=== PATIENT | female | born 1965 ===

== ENCOUNTER 2025-05-15 12:17 | Emergency (ER) | payer MEDICARE, MEDICAID, SELFPAY ==
[2025-05-15] VITALS (7 sets, daily range): BP systolic 101–141; BP diastolic 55–84; PULSE 50–61; RESP 12–18; TEMP 36.4–36.9; O2SAT 97–100; BMI 28.3
--- NOTE | 2025-05-15 | ECG_ITS ---
Test Reason : QUESTION PROLONGED QT Blood Pressure : */* mmHG Vent. Rate : 46 BPM Atrial Rate : 46 BPM P-R Int : 190 ms QRS Dur : 80 ms QT Int : 516 ms P-R-T Axes : 60 -1 25 degrees QTcB Int : 451 ms Sinus bradycardia Otherwise normal ECG No previous ECGs available Referred By: Generic ED Physician Electronically Signed By: ELZA ADAMS
[2025-05-15 13:07] LABS: Appearance Urine Clear; Glucose Urine UA >=1000 mg/dL (Negative); PH 5.5 (5.0-9.0); Specific Gravity - Urine 1.025 (1.005-1.025); UMIC TRIGGER UACC YES
[2025-05-15 13:18] LABS: Cannabinoid Screen Urine Not Detected (Not Detect)
[2025-05-15 13:24] LABS: UACC Culture Trigger YES
--- NOTE | 2025-05-15 13:26 | ED.GENADULT ---
HPI - General Adult General Chief complaint: Overdose Stated complaint: HEROIN USEE,ASLEEP/NEEDLE IN HAND,NO NARCAN GIVEN Time Seen by Provider: 05/15/25 13:05 Source: patient and EMS Mode of arrival: EMS Limitations: no limitations History of Present Illness ED Provider: Altagracia Sanchez NP HPI narrative: Patient is a 59-year-old female who presents emergency department via EMS for evaluation. She was found sleeping in [place] garage today. Was brought in by EMS did not received Narcan prior to hospital arrival. Admitting to IV heroin usage today. States that she typically smokes heroin and crack cocaine but elected to intravenously use today. She arrives to emergency department drowsy but arousable to verbal stimuli. Admits that she thought she was currently in a [facility] she was supposed to get out to the [facility] today for detox. When asked she is currently offers no physical complaints. Related Data Previous Rx's ?Medication ?Instructions ?Recorded cefuroxime axetil 250 mg tablet 250 mg PO BID 7 days #14 tabs 05/16/25 Allergies Allergy/AdvReac Type Severity Reaction Status Date / Time gabapentin (GABAPENTIN) Allergy Unknown N/V Unverified 05/15/25 12:33 tetracycline (TETRACYCLINE) Allergy Unknown RASH Unverified 05/15/25 12:33 Review of Systems Review of Systems: Yes all other systems are reviewed and are negative [facility] Past Medical History Attestation statement: The following information was validated with the patient. Source: old records reviewed Social History Social History Alcohol intake: current Alcohol intake frequency: a few times a month Smoked in Last 30 Days: Yes Use of substances other than those prescribed or required for medical reasons: Yes Substance Use Type: Crack/Cocaine, Heroin and IV Drugs Advance Directives: No Advance Directives Information Provided: No Physical Exam ED Vital Signs: Vital Signs - 24 hr 05/15/25 12:33 05/15/25 13:24 05/15/25 14:49 Temperature 98.5 F 98.3 F Pulse Rate 61 51 51 Respiratory Rate 18 14 18 Blood Pressure 141/78 H 122/77 Pulse Oximetry 98 97 100 Oxygen Delivery Method Room Air Room Air Room Air 05/15/25 18:40 05/15/25 20:46 05/15/25 22:21 Temperature 97.5 F 97.7 F 97.6 F Pulse Rate 50 55 50 Respiratory Rate 12 Blood Pressure 101/55 L 130/84 105/55 L Pulse Oximetry 98 99 98 Oxygen Delivery Method Room Air Room Air Room Air 05/16/25 00:47 05/16/25 02:12 Temperature 97.5 F 97.8 F Pulse Rate 52 59 Respiratory Rate Blood Pressure 121/57 L 91/51 L Pulse Oximetry 99 96 Oxygen Delivery Method Room Air Room Air BMI result Body Mass Index 28.3 Appearance: Alert.?Oriented to person, and time, disoriented to place. No acute distress.? Disheveled. Eyes: Pupils pinpoint, equal, round and reactive to light.? ENT: Pharynx normal.?? Neck: Normal inspection.? Neck supple.?? CVS: Heart sounds normal. Normal heart rate and rhythm.? Pulses normal.?? Respiratory: No respiratory distress.? Lung sounds clear to auscultation bilaterally?? Abdomen: Soft and non-tender. Normoactive bowel sounds. ?? Skin: Skin warm and dry.? Normal skin color.??? Extremities: No lower extremity edema.? No calf ttp? Neuro: Moves all extremities spontaneously. Sensation intact bilaterally. CN II-XII intact. No focal neuro deficits. Ambulates with normal steady gait. Course Reevaluation(s) Reevaluation #1: Time: 21:59 Date: 05/15/25 Provider: YARELY Curtis Patient in physician observation for psychiatric evaluation.? No acute events reported overnight. No current complaints. VS stable.? Patient is in bed search status/pending CARE team evaluation. Will continue to monitor. Time: 21:59 Reevaluation #2: Time: 08:17 Date: 05/16/25 Provider: Natacha Clayton DO Physician observation ended at 817am. Patient has been cleared for discharge by the CARE team. Will follow up as an outpatient. To go to [facility]. oral ceftin to go Medications Administered Discontinued Medications Generic Name Dose Route Start Last Admin Trade Name Freq PRN Reason Stop Dose Admin Cefuroxime Axetil 250 mg 05/15/25 21:00 05/16/25 09:07 Cefuroxime Axetil 250 Mg Tablet PO 05/22/25 09:01 250 mg BID LUCA Administration Naloxone HCl 8 mg 05/16/25 08:18 05/16/25 09:07 Naloxone Hcl Nasal Take Home 4 Mg [place] NOSTRILALT 05/16/25 08:19 8 mg ONCE ONE Administration Medical Decision Making Medical Decision Making [facility] Narrative: Patient is a 59-year-old female with past medical history of polysubstance use disorder, diabetes, hypertension, GERD who presents emergency department via EMS for being found sleeping in a local parking garage as per HPI. Did not receive Narcan pre-hospital. She did admit to intravenous heroin usage prior to arrival, states she is typically smoking her substances. On her person she did have multiple hypodermic needles. She offers no physical complaints and a physical examination is overall benign, she does remain a bit drowsy however she easily arouses to verbal stimuli, she is not hypoxic she is a little disoriented to place, motor suspect that this is secondary to her drug usage. She believes herself to be at a detox facility in [place], will obtain serum labs for medical clearance and appreciate care team/addiction medicine assistance with know if you detox. Patient will also be provided with a take-home Narcan Differential Diagnosis Differential Diagnoses: The differential diagnosis associated with the presentation includes (Unintentional overdose, intentional overdose, polysubstance use disorder) Admission/Observation Consideration of admission/observation: Escalation of care including admission/observation considered Patient placed in physician observation at 13:35 on 05/15/2025 pending sobriety and care team/addiction medicine evaluation for safe disposition planning detox Lab Data [facility] Lab Attestation statement: I reviewed the patient's lab results. Urinalysis positive for nitrites in urine bacteria will be provided with cefuroxime. Toxicology is positive for opiates, fentanyl, and cocaine. CBC is without leukocytosis anemia, has a mild thrombocytopenia 133,000. No electrolyte derangement. No TOD. Non-anion gap hyperglycemia glucose of 187. Mild elevation of AST/ALT 120/98, no priors available for comparison, has a benign abdominal examination, lipase is also normal, lower suspicion for acute hepatobiliary etiology. 05/15/25 13:25 05/15/25 13:25 Labs: Lab Results 05/15/25 05/15/25 05/15/25 Range/Units 12:43 13:00 13:25 WBC 6.4 (4.8-10.8) X10*3/uL RBC 4.28 (4.20-5.50) X10*6/uL Hgb 13.2 (12.0-16.0) g/dl Hct 38.6 (37.0-47.0) % MCV 90.2 (80.0-98.0) fL MCH 30.8 (27.0-33.0) pg MCHC 34.2 (31.0-35.0) g/dl RDW 13.7 (11.0-16.0) % Plt Count 133 L (160-400) X10*3/uL MPV 10.7 (9.4-12.3) fL Immature Gran % (Auto) 0.3 (0.0-0.4) % Neut % (Auto) 36.5 L (45-73) % Lymph % (Auto) 44.2 H (20-40) % [place] % (Auto) 12.9 H (2-11) % Eos % (Auto) 5.0 H (0-4) % Baso % (Auto) 1.1 (0-2) % Lymph # (Auto) 2.8 (1.2-4.9) X10*3/uL [place] # (Auto) 0.8 (0.1-1.2) X10*3/uL Eos # (Auto) 0.3 (0.0-0.4) X10*3/uL Baso # (Auto) 0.1 (0.0-0.2) X10*3/uL Abs Immat Gran (auto) 0.02 (0.00-0.03) X10*3/uL Absolute Neuts (auto) 2.3 (2.0-8.3) x10*3/uL Absolute Nucleated RBC 0.000 (0.0-0.012) X10*3/uL Nucleated RBC % (auto) 0.0 (0.0-0.2) /100WBC Sodium 142 (135-145) mmol/L Potassium 3.5 (3.3-5.1) mmol/L Chloride 103 (96-108) mmol/L Carbon Dioxide 27 (22-29) mmol/L Anion Gap 16 (12-20) BUN 14 (9-16) mg/dL Creatinine 0.76 (0.5-1.4) mg/dL Estim Creat Clear Calc 66.6 Estimated GFR > 60 Random Glucose 187 H (60-115) mg/dL Calcium 9.0 (8.4-10.2) mg/dL Total Bilirubin 0.9 (0.0-1.0) mg/dL AST 120 H (5-31) U/L ALT 98 H (0-31) U/L Alkaline Phosphatase 115 (39-117) U/L Total Protein 7.6 (6.5-8.0) g/dL Albumin 3.9 (3.5-5.0) g/dL Lipase 15 (8-78) U/L Urine Color Yellow Urine Appearance Clear Urine pH 5.5 (5.0-9.0) Ur Specific [place] 1.025 (1.005-1.025) Urine Protein Trace (Neg-Trace) mg/dL Urine Glucose (UA) >=1000 H (Negative) mg/dL Urine Ketones Negative (Negative) mg/dL Urine Blood Trace H (Negative) Urine Nitrite Positive H (Negative) Ur Leukocyte Esterase Negative (Negative) Urine RBC 0-2 (0-2) /HPF Urine WBC 0-5 (0-5) /HPF Ur Squamous Epith Cells 3-5 (0-2) /HPF Urine Bacteria 4+ (None Seen) Hyaline Casts 0-2 (0-2) /LPF Salicylates < 5.0 L (15-30) mg/dL Urine Opiates Screen POSITIVE H (Not Detect) Ur Buprenorphine Scrn Not Detected (Not Detect) ng/mL Ur Oxycodone Screen Not Detected (Not Detect) ng/mL Urine Methadone Screen Not Detected (Not Detect) ng/mL Urine Fentanyl Screen POSITIVE H (Not Detect) Acetaminophen < 3 (<30) mcg/mL Ur Barbiturates Screen Not Detected (Not Detect) Ur Phencyclidine Scrn Not Detected (Not Detect) Ur Amphetamines Screen Not Detected (Not Detect) U Benzodiazepines Scrn Not Detected (Not Detect) Urine Cocaine Screen POSITIVE H (Not Detect) U Marijuana (THC) Screen Not Detected (Not Detect) Influenza Type A (PCR) NEGATIVE (Negative) Influenza Type B (PCR) NEGATIVE (Negative) RSV RNA Qual (PCR) NEGATIVE (Negative) SARS-CoV-2 RNA (RT-PCR) NEGATIVE (Negative) Discharge Plan Discharge Clinical Impression: Polysubstance use disorder, Urinary tract infection Patient Disposition: Home, Self-Care Instructions: Urinary Tract Infection in Women (ED), Polysubstance Use Disorder (ED) Additional Instructions: Overdose You were seen in our Emergency Department for an overdose today. You received narcan in order to reverse the effects of overdose. Narcan only lasts about 45 min to 1 hour in the system. You may have been given narcan to take home with you today, please keep it near you if you are going to use again, so others can use it if needed.? The number one risk for fatal overdose is using alone? [employer] is a / hotline where you can be on the phone with someone while you use, and they can call for help if they suspect an overdose: [phone] Things to look out for when you leave include severe vomiting or diarrhea, headaches, muscle cramps, fever, coughing, chest pain, or if you feel so short of breath you cannot walk to the bathroom. Please seek care and return any time for worsening symptoms.? You may have been provided with safer injection?items, please take time to take care of YOU and your health. Use new supplies whenever possible to lessen the chances of infections and other illnesses.? If you need more supplies, please go [facility],? [address] [place] [address] OR you can call or text to coordinate delivery of safer supplies. If you decide you want to stop or cut down on how much you?re using, please call the numbers on the list provided to you or you can come to our outpatient Addiction Treatment office [facility] (M-F 9am-5p) [address] [place] [address], [address] [phone] On a cephalosporin?antibiotic, softer bowel movements are to be expected. Call your provider if you move your bowels more than 4 times a day, your bowel movements are almost all liquid, or you get a rash.?? Prescriptions: New cefuroxime axetil 250 mg tablet 250 mg PO BID 7 Days Qty: 14 0RF Interventions: ED Discharge Assessment Last Done: 05/16/25 09:22 Discharge Date/Time: 05/16/25 10:21 Print Language: Nigerien
--- NOTE | 2025-05-15 13:28 | PC.NURSE ---
Arrived via ems after being found sleeping in the [facility] parking garage. Patient reports she injected heroin today but usually smokes crack. Changed over into hospital attire, belongings locked up by security. Denies pain or discomfort.
[2025-05-15 13:31] LABS: MANUAL DIFF FLAG NO
[2025-05-15 13:39] LABS: Hematocrit 38.6 % (37.0-47.0); Hemoglobin 13.2 g/dl (12.0-16.0); Imm Gran Abs Auto 0.02 X10*3/uL (0.00-0.03); Imm Gran Pct Auto 0.3 % (0.0-0.4); Lymphocytes Absolute Auto 2.8 X10*3/uL (1.2-4.9); Mean Corpuscular HGB Conc 34.2 g/dl (31.0-35.0); Mean Corpuscular Hemoglobin 30.8 pg (27.0-33.0); Mean Corpuscular Volume 90.2 fL (80.0-98.0); NRBC Abs Auto 0.000 X10*3/uL (0.0-0.012); NRBC Pct Auto 0.0 /100WBC (0.0-0.2); Platelet Count 133 X10*3/uL (160-400); Red Blood Count 4.28 X10*6/uL (4.20-5.50); White Blood Count 6.4 X10*3/uL (4.8-10.8)
[2025-05-15 13:47] LABS: Alanine Aminotransferase 98 U/L (0-31); Albumin Level 3.9 g/dL (3.5-5.0); Alkaline Phosphatase 115 U/L (39-117); Anion Gap 16 (12-20); Aspartate Amino Transferase 120 U/L (5-31); Blood Urea Nitrogen 14 mg/dL (9-16); Calcium 9.0 mg/dL (8.4-10.2); Carbon Dioxide 27 mmol/L (22-29); Chloride 103 mmol/L (96-108); Creatinine Clr Calc Pharmacy 66.6; Estimated Glomerular Filt Rate > 60; Potassium 3.5 mmol/L (3.3-5.1); Sodium 142 mmol/L (135-145); Total Protein 7.6 g/dL (6.5-8.0)
[2025-05-15 13:49] LABS: Acetaminophen LAB < 3 mcg/mL (<30); Salicylate < 5.0 mg/dL (15-30)
[2025-05-15 13:52] LABS: Resp Syncy Virus RNA Qual PCR NEGATIVE (Negative); SARS COV2 PCR INHOUSE NEGATIVE (Negative)
--- NOTE | 2025-05-15 14:04 | MHC.EDTECH ---
called out the pt name 4 times to do an EKG, pt didn't a little movement and ignored while i was asking if i can do an EKG.
[2025-05-15 14:37] LABS: Lipase 15 U/L (8-78)
--- OUTSIDE RECORDS SUMMARY | 2025-05-15 15:44 | XMS_ITS | Clinical Summary ---
Author Organization [employer] Address [address] [place] [address] [address] [place] [address] Care Team Providers Care Magneto Electrician Name Role Phone Unavailable Primary Care Provider Unavailabl e Social History Tobacco Use Types Packs/Day Years Used Date Smoking Tobacco: Never Assessed Comments Unknown Sex and Gender Information Value Date Recorded Sex Assigned at Not on file Legal Sex Female 8:34 PM EDT Gender Identity Not on file Sexual Orientation Not on file Plan of Treatment Health Maintenance Due Date Last Done Comments CT Colonography 1964 Colonoscopy 1964 Colorectal Cancer Screening 1964 Depression Screening 1964 FIT DNA/Cologuard 1964 FIT 1964 FOBT 1964 Sigmoidoscopy 1964 Disability Screening 1964 Alcohol/Substance Use Screening 1976 Tobacco Screening 1976 DTaP/Tdap/Td Vaccines (1 - Tdap) 1983 Pap Smear 1985 Cervical Cancer Screening 1994 HPV/Cotest 1994 Mammogram 2004 Pneumococcal Vaccine: 50+ Ye ars (1 of 1 - PCV) 2014 Zoster Vaccines (1 of 2) 2014 COVID-19 Vaccine ( - 2023-2 5 season) 2024 Influenza Vaccine (#1) 2025 RSV Patients and Pa tients Aged 60 years or older (1 - 1-dose 75+ series) 2039 HIB Vaccines Aged Out No longer eligi ble based on patient's age to complete this topic HPV Vaccines Aged Out No longer eligi ble based on patient's age to complete this topic Hepatitis A Vaccines Aged Out No long er eligible based on patient's age to complete this topic Hepatitis B Vaccines Aged Out No long er eligible based on patient's age to complete this topic IPV Vaccines Aged Out No longer eligi ble based on patient's age to complete this topic Meningococcal B Vaccine Aged Out No l onger eligible based on patient's age to complete this topic Meningococcal Vaccine Aged Out No arvind latisha eligible based on patient's age to complete this topic RSV under 20 months Aged Out No longe r eligible based on patient's age to complete this topic Rotavirus Vaccines Aged Out No longer eligible based on patient's age to complete this topic
--- NOTE | 2025-05-15 15:56 | PC.NURSE ---
Radha from [facility] attempted to talk with pt however she would not wake up for February to engage in a conversation, February reporting she will kluti kaah back around
--- NOTE | 2025-05-15 19:44 | MHC.CARE ---
This racebook writer attempted to meet with pt around 15:30, checking back several times. Pt unarousable to engage in assessment. She was able to respond to verbal commands and let out I want to go to treatment, but was unable to be interviewed. This racebook writer attempted a few more times with no success. Pt was BIBA found sleeping in the [employer] parking garage stating that she was headed to the [place] area for detox. Per charge nurse Luz, EMS reported that pt was found with a syringe in her hand with heroin still in it unused. There were 10 other syringes as well. Unclear how much the pt actually consumed. Pt stated that she usually prefers to smoke crack/cocaine, but she admits to IV heroin use at this time. Narcan was not given, but notable respirations by this racebook writer when trying to engage. Pt will be a dispo follow up due to this information.
[2025-05-16 00:47] VITALS: BP 121/57; PULSE 52; TEMP 36.4; O2SAT 99
[2025-05-16 02:12] VITALS: BP 91/51; PULSE 59; TEMP 36.6; O2SAT 96
--- NOTE | 2025-05-16 08:07 | MHC.CARE ---
T/w spoke to saúl about options this morning, discussed that the best bet for quick placement this morning is either via Lyft to [facility] or [facility]. Patient elected to go via [facility]ft to [facility]
[2025-05-16 08:19] VITALS: BP 120/71; PULSE 61; RESP 18; O2SAT 97
--- NOTE | 2025-05-16 08:30 | PC.NURSE ---
patient given breakfast tray
[2025-05-16] MEDS: Naloxone HCl Nasal TAKE HOME 4 MG SPRAY 8 MG NOSTRILALT (09:07)
[2025-05-16 09:22] VITALS: BP 98/52; PULSE 67; RESP 18; TEMP 36.7; O2SAT 97
--- NOTE | 2025-05-16 09:35 | PC.NURSE ---
patient given lyft by care team, given back belongings and got dressed. patient now does not want to go to [facility], states she is going to take the bus home.
== END 2025-05-16 10:21 | disposition home or self-care (01) ==
PROVIDERS: Nurse Practitioner Family; Emergency Provider Emergency Medicine
DX: T40.1X1A Poisoning by heroin, accidental (unintentional), initial encounter (principal); N39.0 Urinary tract infection, site not specified; Y92.89 Other specified places as the place of occurrence of the external cause; F14.10 Cocaine abuse, uncomplicated; D69.6 Thrombocytopenia, unspecified; R00.1 Bradycardia, unspecified; Z71.51 Drug abuse counseling and surveillance of drug abuser; Z79.899 Other long term (current) drug therapy; Z03.818 Encounter for observation for suspected exposure to other biological agents ruled out; Z51.81 Encounter for therapeutic drug level monitoring
CPT/HCPCS: 80053; 80143; 80179; 80307; 81001; 83690; 85025; 87086; 87088; 87186; 87637; 93005; 99285; S9485

== ENCOUNTER → 2025-05-15 14:58 | Outpatient (BNV) | payer MEDICARE, MEDICAID, SELFPAY | PROVIDERS: Emergency Provider Emergency Medicine; Visit Provider Internal Medicine | DX: R00.1 Bradycardia, unspecified (principal) | CPT/HCPCS: 93010 ==